=== PATIENT | female | born 1960 | race African-American/Black ===

== ENCOUNTER 2017-05-22 10:41 | Emergency (ER) | payer BC ==
[~2017-05-22] VITALS: Ht 172.7 cm; Wt 124.0 kg
[2017-05-22] MEDS ORDERED: AZITHROMYCIN 500 MG TABLET PO ONE (13:00)
[2017-05-22] MEDS ORDERED: ALBUTEROL (0.083%) 2.5MG/3ML NEB HHN ONE (13:00)
[2017-05-22] MEDS ORDERED: GUAIFENESIN/CODEINE 100-10MG/5ML UDC PO ONE (13:00)
[2017-05-22] MEDS ORDERED: KETOROLAC 60MG/2ML VIAL IM ONE (13:00)
[2017-05-22] MEDS ORDERED: LEVOFLOXACIN 750MG PREMIX 150 ML IV ONE (13:30)
[2017-05-22] MEDS ORDERED: ACETAMINOPHEN 325MG TABLET PO ONE (14:45)
[2017-05-22 15:38] VITALS: BP 108/58
== END 2017-05-22 15:40 | disposition home or self-care (01) ==
LOC: ER 11:36
DX: J18.9 Pneumonia, unspecified organism (principal); I10 Essential (primary) hypertension
CPT/HCPCS: 71010; 94640; 96365; 96366; 96372; 99285; J1885; J1956; J7611; Z7610